=== PATIENT | female | born 1965 | race Caucasian/White ===

== ENCOUNTER 2017-02-09 20:23 | Emergency (ER) | payer OTHER ==
[~2017-02-09] VITALS: Ht 160 cm; Wt 84.0 kg
[~2017-02-09 20:23] MED LIST: CHOL400T PO; CYCL5TAB PO; DILT30TA30 PO; GABA800T2 PO; IBUP800T28 PO; LEVO112T4 PO; LORA0.5T PO; MULT-666 PO; ONDA4TAB6 PO; OXYC5TAB72 PO; QUET100T PO; ZLP5T PO
[2017-02-09 20:25] VITALS: BP 120/88; RESP 16; O2SAT 99
--- NOTE | 2017-02-09 20:54 | ED.REPORT ---
HPI-Ear Pain/Problem/FB Date of Service Feb 09, 2017 ED Provider: Dr. Elliott Pt is a 51 y/o female w/ a hx of tyroid CA s/p resection presenting to the ED c/ o left ear pain onset today. She c/o associated nasal congestion and left neck pain. She does have a hx of sinus infections. The pt denies headache, fever, nausea, vomiting, cough, dysphagia. She is here requesting to be checked for ear infection. Nursing Notes Stated Complaint: LEFT EAR PAIN Chief Complaint: ENT & Mouth Nursing Notes Reviewed: Yes Allergies: Coded Allergies: Sulfa (Sulfonamide Antibiotics) (Verified Allergy, Severe, 10/08/15) Beta-Blockers (Beta-Adrenergic Bloc (Verified Allergy, Intermediate, ) "messes up my blood pressure" Penicillins (Verified Allergy, Unknown, 10/08/15) acetaminophen (Verified Allergy, Unknown, 10/08/15) ketorolac (Verified Allergy, Unknown, 10/08/15) oxycodone (Verified Allergy, Unknown, 10/08/15) hydrocodone (Verified Adverse Reaction, Unknown, 10/08/15) hydromorphone (Verified Adverse Reaction, Unknown, 10/08/15) morphine (Verified Adverse Reaction, Unknown, 10/08/15) Scheduled Cholecalciferol (Vitamin D3) (Vitamin D3) Unknown Strength Tablet Unknown Dose PO DAILY Diltiazem (Cardizem) Unknown Strength Tablet Unknown Dose PO ACHS Gabapentin (Gabapentin) 800 Mg Tablet 800 MG PO BID Levothyroxine (Levothyroxine) 112 Mcg Tablet 112 MCG PO DAILY Multivitamin (Once Daily) 1 Each Tablet 1 EACH PO DAILY Quetiapine Fumarate (Seroquel) Unknown Strength Tablet Unknown Dose PO HS Scheduled PRN Cyclobenzaprine (Cyclobenzaprine) Unknown Strength Tablet Unknown Dose PO TID PRN PRN Spasm Ibuprofen (Ibuprofen) 800 Mg Tablet 800 MG PO BID PRN PRN For Pain Lorazepam (Lorazepam) 0.5 Mg Tablet 0.5 MG PO HS PRN PRN For Insomnia Ondansetron (Zofran) 4 Mg Tablet 4 MG PO Q4H PRN PRN For Nausea Zolpidem (Ambien) Unknown Strength Tablet Unknown Dose PO HS PRN PRN For Insomnia oxyCODONE (oxyCODONE) 5 Mg Tablet 2.5-5 MG PO Q4H PRN PRN For Pain General Time Seen by MD: 20:36 Chief Complaint Ear problem left, Pain Hx Obtained From: Patient Arrived By: Walk-in Onset Occurred: 5 - 8 hours ago Symptom Duration: Since onset Location: : Ear canal Quality: Painful Severity: Current: Mild Severity: Maximum: Mild Recent Healthcare: No recent doctor visit, No recent hospitalization Similar Sx Previous: No Past Medical History Past Medical History viral gastritis fibromyalgia Hx sinusitis Past Surgical History Reports: Appendectomy, Cholecystectomy Smoking History Current Every Day Smoker Social History Alcohol Use: "Social" Drug Use: Denies drug use Ambulatory Status Independent Review of Systems Constitutional: Denies: Chills, Fever Ears / Nose / Throat: Reports: Earache left Complete sys rev & neg: except as marked. Additional Review of Systems Respiratory: Denies: Non-productive cough, Shortness of breath Cardiovascular: Denies: Chest pain, Dyspnea on exertion GI: Denies: Abdominal pain, Dysphagia, Nausea, Vomiting Musculoskeletal: Reports: Neck pain Physical Exam Initial Vital Signs Vital Signs (First) Date Time Temp Pulse Resp B/P Pulse Ox O2 Delivery O2 Flow Rate FiO2 02/09/17 20:25 36.5 94 16 120/88 99 Room Air Initial VS: Reviewed, Vital signs normal Head / Eyes: Atraumatic, Normocephalic, PERRL Respiratory: Breath sounds normal, Clear to auscultation, No respiratory distress Cardiovascular: Regular rate & rhythm, Heart sounds normal, Intact distal pulses Abdomen / GI: Soft, No distention Extremities: Vascular intact, Neuro intact, No swelling Skin: Warm, Dry, No cyanosis Neurologic: Alert, Oriented, Nonfocal Psychiatric: Mood/affect normal, Behavior normal, Normal thought content General/Constitutional: Awake, Alert, No acute distress, Well appearing, Cooperative, Not toxic appearing ENT: Atraumatic, Airway patent, Mucous membranes moist, Pharynx NL, No pooling of secretions, No trismus, Ext aud canal NL, Mastoid area NL, No sinus tenderness, No facial swelling Mild effusion of left TM without bulging or erythema Neck: Atraumatic, Supple, No meningismus, Full range of motion Mild left lateral neck tenderness without mass Re-Eval/Medical Decision Med Decision/Clinical Course 51-year-old female history of thyroid cancer status post resection with congestion and left ear pain 1 day. Left TM is clear. Oropharynx is clear. She has no dysphagia or fevers nausea or vomiting. She did complain of some left neck tenderness just lateral. There were no masses palpated. Not any evidence of abscess or retropharyngeal abscess. Able to open her mouth completely. Likely viral URI though I recommend she follow up with her primary doctor for recheck tomorrow. Return precautions given any new or worseningsymptoms. Counseled Regarding: Diagnosis, Need for follow-up, When/why to return to ED Discharge & Departure Primary Impression: Viral upper respiratory infection Disposition: Home Discharge Condition All VS Reviewed: Yes Condition: Stable Patient Instructions: Upper Respiratory Infection (ED) Additional Instructions: Evaluation in the emergency Department for left ear pain includes interview, physical examination both of which are reassuring that this is unlikely to be caused by an immediately dangerous condition or any ear infection. We believe that that this is most likely a viral upper respiratory infection. Treat the pain with your usual regimen, and stay as hydrated as possible. Follow-up with your primary care provider if this is not improved in a few days. Return to emergency department for any new or worsening symptoms including increasing pain, difficulty breathing or swallowing. Referrals: Emeterio Baca MD (PCP) Eranibe Attestation Portions of this note were transcribed by Omkar Turner. I, Dr. Elliott, personally performed the history, physical exam and medical decision-making; I reviewed and confirmed the accuracy of the information in the transcribed note. Signed by Anushka Angelo, 02/09/17 3 copies to: Emeterio Baca MD, Ben M MD Feb 09, 2017 20:54 Malcolm Maldonado PA-C Feb 09, 2017 20:59 OMKAR TURNER Feb 09, 2017 21:16
[2017-02-09 21:32] VITALS: BP 120/88; PULSE 94; RESP 16; O2SAT 99
== END 2017-02-09 21:24 | disposition home or self-care (01) ==
LOC: SED 20:23
DX: J06.9 Acute upper respiratory infection, unspecified (principal); F17.200 Nicotine dependence, unspecified, uncomplicated; Z79.899 Other long term (current) drug therapy; Z88.0 Allergy status to penicillin; Z88.2 Allergy status to sulfonamides; Z88.5 Allergy status to narcotic agent; Z88.8 Allergy status to other drugs, medicaments and biological substances